=== PATIENT | male | born 1955 | race Caucasian/White ===

== ENCOUNTER 2024-03-06 04:30 | Emergency (ER) | payer OTHER, SELFPAY ==
[2024-03-06] VITALS (7 sets, daily range): BP systolic 119–137; BP diastolic 74–90; BMI 25.7
--- NOTE | 2024-03-06 06:13 | ED.GENMED ---
Addendum entered and electronically signed by Dao Menezes DO 03/06/24 09:55:
Patient and significant other know about the enlarged spleen they see Dr. Hernandez from oncology they will follow-up with her as an outpatient
Original Note:
History of Present Illness
General
Chief Complaint: Male Genito-Urinary Symptoms
Source: patient and spouse
Exam Limitations: none
Time Seen by Provider: 03/06/24 06:02
Nursing documentation reviewed up to this point in time: agreed with
History of Present Illness
History of Present Illness:
68 male presents with fatigue fevers, trouble urinating diagnosed with Lyme disease a week ago started on doxycycline vomited some of the doses, has had history of large prostate, has had fatigue trouble ambulating General Malaise, anxiety, no
cough, using Tylenol Motrin, has also been constipated vomited up his doxycycline a few days ago
Past History
Past History
ED Past Medical History: Hypercholesterolemia, Other (BPH) and Other (Lyme disease)
ED Past Surgical History: None
Social History
Tobacco: Non-smoker
Alcohol: None
Drug: None
Personal: Partner
Living: with family
Review of Systems
Review of Systems
All Other Systems: Not applicable
Constitutional: Reports fever, fatigue and chills
EENT: Reports no symptoms
Respiratory: Reports no symptoms
Cardiac: Reports no symptoms
ABD/GI: Reports nausea, vomiting and constipated; Denies diarrhea
: Reports dysuria and difficulty voiding; Denies flank pain or discharge
Neurological: Reports weakness
Phy Exam
Physical Exam
Physical Exam:
Physical Exam
General: 68 male looks uncomfortable
Neck: No jaundice
Heart: s1/s2 regular rate and rhythm, no murmur. equal radial pulses.
Lungs: no acute respiratory distress. clear bilaterally
Abdomen: Suprapubic tenderness
Neuro: alert and oriented. no focal neurological deficits
Skin: no rash
Psychiatric: well kept. interactive and cooperative
Extremities: no edema.
Course
Orders/Labs/Results
Orders:
Orders
03/06/24 06:11
Bladder Scan- Treatment ONCE
03/06/24 06:22
CMP [Comprehensive Metabolic Panel] Urgent
03/06/24 06:23
COVID-19 Antigen Urgent
Source: Nasal Swab
Complete Blood Count/With Diff Urgent
Manual Differential Urgent
Influenza A+B Rapid Molecular Urgent
RAUL Source: Nasal Swab
Specimen Description:
03/06/24 06:48
Abdomen Xray - 1 View [CR Abdomen - 1 View] Urgent
Comment:
Reason For Exam: fos
03/06/24 07:21
0.9% Sodium Chloride 1000 ml [Nss] 1,000 ml IV BOLUS
03/06/24 07:56
Urinalysis Reflex To Culture Urgent
Date Specimen was Collected: 03/06/24
Time Specimen was Collected: 05:10
Urine Microscopic Reflex Cult Urgent
03/06/24 07:59
CefTRIAXone [Rocephin] 1,000 mg IV NOW STA
03/06/24 08:11
Sterile Water [Sterile Water For Injection] 10 ml .ROUTE .STK-MED ONE
Abnormal Lab Results
03/06/24 03/06/24 03/06/24
06:22 06:23 07:56
RBC 7.07 H 10^6/uL
(4.70-6.10)
Hgb 12.8 L g/dL
(13.0-18.0)
MCV 56.6 L fL
(80.0-94.0)
MCH 18.1 L pg
(27.0-31.0)
MCHC 32.0 L g/dL
(33.0-37.0)
RDW 20.9 H %
(11.5-14.5)
Plt Count 78 L 10^3/uL
(130-400)
Band Neutrophils 8 H %
(0-3)
Lymphocytes (Manual) 14 L %
(20-51)
Monocytes (Manual) 31 H %
(2-9)
Sodium 130 L mmol/L
(135-145)
Chloride 95 L mmol/L
(98-107)
BUN 24 H mg/dl
(9-20)
Glucose 132 H mg/dl
(70-99)
Calcium 7.8 L mg/dl
(8.4-10.2)
Alkaline Phosphatase 127 H U/L
(38-126)
Total Protein 5.2 L g/dl
(6.3-8.2)
Albumin 3.2 L g/dl
(3.5-5.0)
Urine Bilirubin 1+ A
(Negative)
Leukocyte Esterase Rfl Trace A
(Negative)
03/06/24 06:23
03/06/24 06:22
Vital Signs
Initial and Last Documented VS:
Initial Vital Signs
Temp Pulse BP Pulse Ox
99.8 F 75 126/74 97
03/06/24 04:35 03/06/24 04:35 03/06/24 04:35 03/06/24 04:35
Last Documented Vital Signs
Temp Pulse Resp BP Pulse Ox
99.8 F 64 22 136/87 98
03/06/24 04:35 03/06/24 09:30 03/06/24 09:30 03/06/24 09:00 03/06/24 07:15
MDM/Problems Addressed
Differential Diagnosis Includes:
BPH prostatitis UTI retention viral syndrome
MDM/Problems Addressed:
Trouble urinating
*Critical Care Note
Total Time (30-74mins, 75-104mins- exclusive of procedures): Not Applicable
Update Note
Update Note:
Update bladder scan less than 100 cc will have him continue to hydrate orally will check KUB to see if he is impacted or constipated significantly,
Labs noted, will start IV hydration
Urine noted,
Will give a dose of ceftriaxone as it does sound like he has Lyme, that may explain all symptoms with dehydration, did have a tick pulled off with him couple weeks ago at the [facility] [place]
Update urinalysis noted, no convincing evidence of UTI, suspect he is dehydrated, given some information from up-to-date on Lyme, will continue doxycycline also given a copy of his ultrasound discussed with his PCP
ED Attending Note
-
Portions of this chart may have been created with voice recognition software.� Occasional wrong word or��sound alike� substitutions may have occurred due to the inherent limitations of voice recognition software.
Discharge Plan
Departure
Patient Disposition: Home (Routine Discharge)
Date of Disposition: 03/06/24
Time of Disposition: 09:37
Patient with high blood pressure during this ER visit?: No
Condition: Good
Discharge Problem:
Dehydration
Prescriptions:
No Action
No Meds
oxycodone-acetaminophen 5 MG/325 MG tablet
1 tab PO Q4HPRN PRN (Reason: pain) Qty: 5 0RF
cephalexin 500 MG capsule
500 mg PO QID Qty: 28 0RF
Referrals:
Jacqueline Alcaraz NP [Family Provider] - Next open appointment
Activity Restrictions/Additional Instructions:
Drink 32 ounces of water a day at least
Continue doxycycline as prescribed
Discussed your x-ray report with your primary care provider and the need for an ultrasound
Interventions
Interventions:
*Risk Screen - Suicide Last Done: 03/06/24 06:08
*General Assessment Last Done: 03/06/24 06:08
*Neglect/Abuse Screening Last Done: 03/06/24 06:08
*ED COVID-19 Vaccine History Last Done: 03/06/24 06:08
ED-Male Genitourinary Assessment Last Done: 03/06/24 06:07
Discharge Date and Time
Print Language: ARMENIAN
[2024-03-06 06:45] LABS: Hemoglobin 12.8 g/dL (13.0-18.0); Mean Corpuscular Hgb 18.1 pg (27.0-31.0); Mean Corpuscular Volume 56.6 fL (80.0-94.0); Platelet Count 78 10^3/uL (130-400); Red Blood Cell Count 7.07 10^6/uL (4.70-6.10); Red Cell Dist. Width 20.9 % (11.5-14.5); White Blood Cell Count 10.1 10^3/uL (4.8-10.8)
[2024-03-06 07:15] LABS: ALT (SGPT) 24 U/L (0-50); AST (SGOT) 28 U/L (17-59); Albumin 3.2 g/dl (3.5-5.0); Alkaline Phosphatase 127 U/L (38-126); Blood Urea Nitrogen 24 mg/dl (9-20); Calcium 7.8 mg/dl (8.4-10.2); Carbon Dioxide 26 mmol/L (22-30); Chloride 95 mmol/L (98-107); Estimated Creatinine Clearance 54 ml/min; Glucose 132 mg/dl (70-99); Potassium 4.8 mmol/L (3.5-5.1); Sodium 130 mmol/L (135-145); Total Bilirubin 1.3 mg/dl (0.2-1.3); Total Protein 5.2 g/dl (6.3-8.2); eGFR 59.47
[2024-03-06 07:43] LABS: COVID-19 Antigen Negative (Negative)
[2024-03-06] MEDS: NSS 1000 IV (07:54)
[2024-03-06] MEDS: ROCEPHIN 1000 MG IV (08:14)
[2024-03-06 08:24] LABS: Urine Albumin Trace (Neg - Trace); Urine Bilirubin 1+ (Negative); Urine Character Slightly Cloudy (Clear); Urine Color Yellow; Urine Glucose Negative (Negative); Urine Ketone Negative (Negative); Urine Leukocyte Trace (Negative); Urine Nitrite Negative (Negative); Urine Occult Blood Negative (Negative); Urine Specific Gravity 1.015 (<1.030); Urine Urobilinogen Negative (Neg - 1+)
[2024-03-06 08:39] LABS: Urine Granular Cast 0-2 /LPF (0); Urine Red Blood Cell 0-2 /HPF (0-2); Urine Squamous Cell 0-2 /LPF (Few)
[2024-03-06 08:40] LABS: Urine Amorphous Seen
[2024-03-06 09:04] LABS: Absolute Neutrophils -Man Diff 5.3 10^3/uL (1.4-6.5); Band Neutrophils 8 % (0-3); Eosinophils 1 % (0-6); Lymphocytes 14 % (20-51); Monocytes 31 % (2-9); Segmented Neutrophils 45 % (42-75)
[2024-03-06 09:05] LABS: Metamyelocytes 1 % (-); Platelets Checked Yes
[2024-03-06 09:06] LABS: Anisocytosis 1+; Hypochromasia Slight; Normal RBC Morphology No; Nucleated Red Blood Cells 5 (-); Ovalocytes 1+; Target Cells Slight; Total Cells Counted 100
--- NOTE | 2024-03-06 09:57 | EDRN ---
Reviewed discharge instructions with patient. Verbalized understanding. Ambulated with steady gait to the lobby.
== END 2024-03-06 09:55 | disposition home or self-care (01) ==
LOC: EMR 04:30
PROVIDERS: Emergency Medicine; EMERGENCY PHYSICIAN Emergency Medicine; FAMILY PHYSICIAN Internal Medicine
DX: E86.0 Dehydration (principal); R53.83 Other fatigue; R50.9 Fever, unspecified; R11.2 Nausea with vomiting, unspecified; R30.0 Dysuria; R51.9 Headache, unspecified; R53.1 Weakness; A69.20 Lyme disease, unspecified; Z11.52 Encounter for screening for COVID-19; K59.00 Constipation, unspecified; D45 Polycythemia vera; R16.1 Splenomegaly, not elsewhere classified; F41.9 Anxiety disorder, unspecified; E78.00 Pure hypercholesterolemia, unspecified; N40.1 Benign prostatic hyperplasia with lower urinary tract symptoms; R33.8 Other retention of urine; E78.5 Hyperlipidemia, unspecified; Z88.8 Allergy status to other drugs, medicaments and biological substances
CPT/HCPCS: 99284; 96374; 96361; 51798; 74018; 80053; 81003; 81015; 85025; 87502; 87811

== ENCOUNTER 2024-03-07 22:32 | Inpatient (IN) | payer OTHER, SELFPAY ==
[2024-03-07 18:29] VITALS: BP 143/91
[2024-03-07 18:50] LABS: Hematocrit 43.6 % (39.0-52.0); Hemoglobin 13.9 g/dL (13.0-18.0); Mean Corp Hgb Conc. 31.9 g/dL (33.0-37.0); Mean Corpuscular Hgb 18.2 pg (27.0-31.0); Platelet Count 71 10^3/uL (130-400); Red Blood Cell Count 7.65 10^6/uL (4.70-6.10); Red Cell Dist. Width 21.9 % (11.5-14.5); White Blood Cell Count 18.5 10^3/uL (4.8-10.8)
[2024-03-07 19:07] LABS: ALT (SGPT) 29 U/L (0-50); AST (SGOT) 34 U/L (17-59); Albumin 3.5 g/dl (3.5-5.0); Alkaline Phosphatase 138 U/L (38-126); Blood Urea Nitrogen 27 mg/dl (9-20); Calcium 7.9 mg/dl (8.4-10.2); Carbon Dioxide 25 mmol/L (22-30); Chloride 91 mmol/L (98-107); Glucose 130 mg/dl (70-99); Lipase 199 U/L (23-300); Potassium 5.5 mmol/L (3.5-5.1); Sodium 125 mmol/L (135-145); Total Bilirubin 1.4 mg/dl (0.2-1.3); Total Protein 5.6 g/dl (6.3-8.2); eGFR 54.41
[2024-03-07 19:19] LABS: Atypical Lymphocytes 3 %; Band Neutrophils 1 % (0-3); Lymphocytes 20 % (20-51); Monocytes 39 % (2-9); Segmented Neutrophils 37 % (42-75)
[2024-03-07 19:20] LABS: Normal RBC Morphology No; Nucleated Red Blood Cells 6 (-); Platelets Checked Yes; Total Cells Counted 100
--- NOTE | 2024-03-07 19:43 | ED.GENMED ---
History of Present Illness
General
Chief Complaint: Abdominal Symptoms
Source: patient, records and family
Exam Limitations: none
Time Seen by Provider: 03/07/24 19:08
History of Present Illness
History of Present Illness:
68yoM with a history of hyperlipidemia and polycythemia vera presenting with his family for evaluation of multiple complaints. Patient has been feeling ill for about 3 weeks with night sweats, body aches, and joint pains. His PCP reportedly
checked a Lyme panel about a week ago which came back positive. He was started on a 21 day course of doxycycline. Over the past 4 to 5 days, patient has been feeling a fullness in his upper abdomen with bloating. He is also having acid reflux and
decreased appetite. He is vomiting intermittently. He feels very dehydrated and is urinating less than normal. He is also having fevers up to 103 at home. He was seen in the ED yesterday for the symptoms. He was diagnosed with dehydration and
received a liter of normal saline and a dose of Rocephin during his ED stay. He also had a KUB which showed findings suggesting severe splenomegaly. Patient took his evening dose of doxycycline around 6 PM this evening. About 30 minutes later, he
developed a stinging pain in his left upper quadrant which radiated to the left shoulder. Pain was worse with breathing which prompted him to come to the ED. Patient reports feeling very anxious regarding his symptoms.
Past History
Past History
ED Past Medical History: Hypercholesterolemia, Other (BPH) and Other (Lyme disease)
ED Past Surgical History: None
Social History
Tobacco: Non-smoker
Alcohol: None
Drug: None
Personal: Partner
Living: with family
Phy Exam
Physical Exam
Physical Exam:
Appears fatigued, non-toxic
General Physical Exam
General Skin: warm and dry
General Habitus: normal
General Mental: alert and anxious
ENT Exam
ENT Exam: normocephalic
Cardiovascular Exam
Cardiovascular Exam: regular rate/rhythm and no murmur
Pulmonary Exam
Pulmonary Exam: lungs clear, no respiratory distress, no rales, no crackles, no rhonchi and no wheezing
Gastrointestinal Exam
Gastrointestinal Exam: soft, non distended and other (+Tenderness in epigastric and LUQ region. No rebound or guarding. )
Neurological Exam
Neurological Exam: alert
Rogelio Coma Scale
Eye Opening: Spontaneous
Verbal Response: Oriented
Motor Response: Obeys Commands
GCS Total Score: 15
Skin Exam
Skin Exam: normal color and warm/dry
Psychiatric Exam
Psychiatric Exam: anxious
Course
Orders/Labs/Results
Orders:
Orders
03/07/24 18:22
EKG [Electrocardiogram (*1)] Urgent
Reason for Study: Chest Pain
EKG- Treatment ONCE
03/07/24 18:38
Complete Blood Count/With Diff Urgent
Comprehensive Metabolic Panel Urgent
Lipase Urgent
Magnesium Urgent
Comment: ADD ON
Manual Differential Urgent
03/07/24 19:40
Add On- LAB Urgent
Tests Added?: magnesium
Cardiac Monitoring- Treatment ONCE
03/07/24 19:41
CT Pe/abd/pel W Urgent
Comment:
Reason For Exam: Pleuritic pain, upper abd pain
0.9% Sodium Chloride 1000 ml [Nss] 1,000 ml IV BOLUS
03/07/24 19:51
Lactate Level [Lactic Acid] Urgent
Troponin I Urgent
Blood Culture Q30M
RAUL Source: Blood/Venous
Specimen Description:
03/07/24 20:15
Blood Culture Q30M
RAUL Source: Blood/Venous
Specimen Description:
03/07/24 21:04
CefTRIAXone [Rocephin] 2,000 mg IV NOW STA
03/07/24 21:11
Sterile Water [Sterile Water For Injection] 20 ml .ROUTE .STK-MED
03/07/24 22:00
Flush (0.9% Sodium Chloride) [Flush (Nss)] See Dose Instructions IV PER PROTOCOL
03/07/24 22:12
Lorazepam [Ativan] 1 mg PO NOW STA
03/07/24 22:16
Admit/Transfer Patient As Directed
Co-Sign Provider:
Level of Care: Inpatient admission
Assign to:: Medical/Surgical
Physician / Group: [email or web address]
Diagnosis: acute lyme infection, symtomatic splenic infarct, poot PO tolernc to PO De
Reason for Hospitalization: acute Lyme infection, symptomatic splenic infarct, poor PO tolerance to doxy, PO
Dehydration
Expected length of stay greater than two midnights?: Yes
ELOS- Estimated Length of Stay in days: 3
I certify the patient meets the requirements for IP care: Yes
03/07/24 22:18
Code Status As Directed
Resuscitation Status: Full Code
03/07/24 23:04
0.9% Sodium Chloride 1000 ml [Nss] 1,000 ml IV 100 mls/hr
Acetaminophen [Tylenol] 650 mg PO Q4HPRN PRN
Bisacodyl [Dulcolax] 10 mg RECTAL [id number] PRN
Docusate W/Senna [Senokot-S] 1 tablet PO BIDPRN PRN
HYDROmorphone [Dilaudid] 0.25 mg IV Q3HPRN PRN
Ondansetron Injectable [Zofran] 4 mg IV Q6HPRN PRN
Polyethylene Glycol Powder [Miralax] 17 grams PO DAILYPRN PRN
03/07/24 23:04
Consult Notification Routine
Specialty to Notify: Hematology
Consult Notification Routine
Specialty to Notify: Infectious Disease
HEMATOLOGY CONSULT Routine
Consulting Provider: Naveed Hughes
Was physician already notified: No
Reason for consult: acute splenic infarct, polycythenia
INFECTIOUS DISEASE CONSULT Routine
Consulting Provider: Laina Paez
Was physician already notified: No
Reason for consult: acute lyme infection
Activity As Directed
Activity Level: With Assistance
Intake/ Output As Directed
Frequency: Per unit guidelines
Vital Signs As Directed
Frequency: Per unit guidelines
Weight As Directed
Frequency: Daily
DX Deep Vein Thrombosis Video Routine
03/08/24 Breakfast
Full Liquids
Basic Metabolic Panel IN AM
Complete Blood Count/No Diff IN AM
03/08/24 08:00
Aspirin Low Dose EC [Aspir Low (Enteric Coated)] 81 mg PO DAILY
Heparin 5,000 units SC Q12
03/08/24 22:00
CefTRIAXone [Rocephin] 1,000 mg IV Q24H
Abnormal Lab Results
03/07/24
18:38
WBC 18.5 H 10^3/uL
(4.8-10.8)
RBC 7.65 H 10^6/uL
(4.70-6.10)
MCV 57.0 L fL
(80.0-94.0)
MCH 18.2 L pg
(27.0-31.0)
MCHC 31.9 L g/dL
(33.0-37.0)
RDW 21.9 H %
(11.5-14.5)
Plt Count 71 L 10^3/uL
(130-400)
Abs Neuts (Manual) 7.0 H 10^3/uL
(1.4-6.5)
Segmented Neutrophils 37 L %
(42-75)
Monocytes (Manual) 39 H %
(2-9)
Sodium 125 L mmol/L
(135-145)
Potassium 5.5 H mmol/L
(3.5-5.1)
Chloride 91 L mmol/L
(98-107)
BUN 27 H mg/dl
(9-20)
Creatinine 1.4 H mg/dL
(0.7-1.3)
Glucose 130 H mg/dl
(70-99)
Calcium 7.9 L mg/dl
(8.4-10.2)
Total Bilirubin 1.4 H mg/dl
(0.2-1.3)
Alkaline Phosphatase 138 H U/L
(38-126)
Total Protein 5.6 L g/dl
(6.3-8.2)
03/07/24 18:38
03/07/24 18:38
Vital Signs
Initial and Last Documented VS:
Initial Vital Signs
Temp Pulse Resp BP Pulse Ox
98.3 F 91 20 143/91 97
03/07/24 18:29 03/07/24 18:29 03/07/24 18:29 03/07/24 18:29 03/07/24 18:29
Last Documented Vital Signs
Temp Pulse Resp BP Pulse Ox
98.3 F 66 17 111/77 96
03/07/24 18:29 03/08/24 02:00 03/08/24 02:00 03/08/24 02:00 03/08/24 02:00
MDM/Problems Addressed
Differential Diagnosis Includes:
68yoM here with multiple complaints including fevers, night sweats, decreased appetite, upper abd pain. Recently tested positive for Lyme and currently on doxycycline. Seen in ED yesterday for dehydration. New LUQ pain radiating to the L shoulder
this evening prompting return visit. Patient is afebrile and hemodynamically stable. He is anxious on exam and appears fatigued but nontoxic. No signs of peritonitis on abdominal exam. Differential diagnosis includes but is not limited to:
Splenomegaly, pill esophagitis, pancreatitis, PUD, dehydration.
Initial ED plan: Abdominal labs obtained in triage. Sodium is 125 which appears acute. Potassium mildly elevated at 5.5. Creatinine 1.4. Will check lactate, blood cultures, troponin/EKG, and CTA CAP. IV fluid bolus.
*EKG
Interpreted by ED Provider?: Yes
EKG Intrepretation Date: 03/07/24
Heart Rate: 78
Rate: normal
Rhythm: sinus
[place]: normal axis
Interval: normal interval
QRS Pattern: normal QRS
Ischemia: no ischemia
*Critical Care Note
Total Time (30-74mins, 75-104mins- exclusive of procedures): Not Applicable
Update Note
Update Note:
No ischemic changes noted on EKG and troponin within normal limits. Lactate 1.7. CT shows severe splenomegaly with heterogeneous enhancement of the spleen which suggest the presence of splenic infarcts. Patient having difficulty tolerating
doxycycline. Dose of IV Rocephin ordered and he was admitted for further management.
ED Attending Note
-
Portions of this chart may have been created with voice recognition software.� Occasional wrong word or��sound alike� substitutions may have occurred due to the inherent limitations of voice recognition software.
Discharge Plan
Departure
Patient Disposition: Admit
Date of Disposition: 03/07/24
Time of Disposition: 21:05
Presentation/result/management discussed w/ accepting MD/DO: Hospitalist
Discharge Problem:
Acute hyponatremia, Fever, Generalized weakness, Splenomegaly
Interventions
Interventions:
*Risk Screen - Suicide Last Done: 03/07/24 18:29
*General Assessment Last Done: 03/07/24 18:29
*Neglect/Abuse Screening Last Done: 03/07/24 18:29
ED- Fall Risk Assessment Last Done: 03/07/24 20:13
*ED COVID-19 Vaccine History Last Done: 03/07/24 19:47
IX-Tthiwz-Xobxbhthqo Assessment Last Done: 03/07/24 20:13
[2024-03-07 19:47] VITALS: BMI 26.5
[2024-03-07] MEDS: NSS 1000 IV ×2 (19:55→23:49)
[2024-03-07 20:00] VITALS: BP 135/88
[2024-03-07 20:19] LABS: Magnesium 1.9 mg/dl (1.6-2.3)
[2024-03-07 20:22] LABS: Lactic Acid 1.7 mmol/L (0.7-2.0)
[2024-03-07 20:34] LABS: Troponin I < 0.012 ng/ml
[2024-03-07 21:00] VITALS: BP 130/83
[2024-03-07] MEDS: ROCEPHIN 2000 MG IV (21:12)
--- NOTE | 2024-03-07 21:48 | HPS.HSE ---
Family Physician
-
Family Physician: Jacqueline Alcaraz
Chief Complaint
-
multiple complaints. see HPI
History of Present Illness
68M HX polycythemia vera, HLD see at ER with multiple complaints.
- has been feeling ill for about 3 weeks with night sweats, body aches, and joint pains.
- PCP reportedly checked a Lyme panel about a week ago which came back positive.
- started on a 21 day course of doxycycline.
- Over the past 4 to 5 days, report fullness in his upper abdomen with bloating.
- acid reflux and decreased appetite
- vomiting intermittently.
- dehydrated and is urinating less than normal.
- fevers up to 103 at home.
- he was seen in the ED yesterday for the symptoms. He was diagnosed with dehydration and received a liter of normal saline and a dose of Rocephin during his ED stay. He also had a KUB which showed findings suggesting severe splenomegaly.
- Patient took his evening dose of doxycycline around 6 PM this evening. About 30 minutes later, he developed a stinging pain in his left upper quadrant which radiated to the left shoulder. Pain was worse with breathing which prompted him to come
to the ED.
Medical History
Past Medical History
Past Medical History: Reports Hypercholesterolemia and Other (BPH , Polycythemia )
Past Surgical History: Reports None
Social History
Tobacco: Non-smoker
Alcohol: None
Family History
Family History: Not pertinent
Allergies / Home Medications
Allergies reflects when Allergies were last updated in [employer].
Home Medications with original date entered in [employer]
Allergy/Medication List:
Allergies
Allergy/AdvReac Type Severity Reaction Status Date / Time
Ywvzewi-YFW-WiA Reductase Allergy Unknown Verified 03/07/24 18:33
Inhibitor
Home Medications
aspirin 81 mg tablet,delayed release 81 mg PO DAILY 03/07/24
rosuvastatin 5 mg tablet 5 mg PO DAILY 03/07/24
Review of Systems
-
Constitutional: Reports Fever
EENT: Reports See HPI
Respiratory: Reports See HPI
Cardiac: Reports See HPI
Musculoskeletal: Reports See HPI
Skin: Reports See HPI
Neurological: Reports See HPI and Dizzy
Endocrine: Reports See HPI
Hematologic/Lymphatic: Reports See HPI
Physical Exam
Vital Signs
Vital Signs
Temp Pulse Resp BP Pulse Ox
98.3 F 70 21 130/83 95
03/07/24 18:29 03/07/24 21:15 03/07/24 21:15 03/07/24 21:00 03/07/24 21:15
Physical Exam
General: Well Developed, Well Nourished and No Apparent Distress
HEENT: NormoCephalic, Moist mucous membranes and Atraumatic
Respiratory: Clear
Cardiac: S1/S2 and Regular Rhythm; No Murmur or Rub
GI: Soft, Non Tender, Non Distended and Normal Bowel Sounds; No Organomegaly
Rectal: Deferred by Provider
Musculoskeletal: No Clubbing, No Cyanosis and No Edema
Skin: No Rash
Neuro: Nonfocal/grossly intact
Laboratory Results
-
03/07/24 18:38
03/07/24 18:38
Laboratory Results
Lactic Acid 1.7 mmol/L (0.7-2.0) 03/07/24 19:51
Total Bilirubin 1.4 mg/dl (0.2-1.3) H 03/07/24 18:38
AST 34 U/L (17-59) 03/07/24 18:38
ALT 29 U/L (0-50) 03/07/24 18:38
Alkaline Phosphatase 138 U/L (38-126) H 03/07/24 18:38
Troponin I < 0.012 ng/ml 03/07/24 19:51
Lipase 199 U/L (23-300) 03/07/24 18:38
Data Reviewed
-
CT Scan: Report Reviewed by me
Lab Data: Discussed with Physician
Impression/Plan
-
Data
Laboratory Tests
03/06/24 03/06/24 03/07/24
06:22 06:23 18:38
WBC 10.1 18.5 H
Hgb 12.8 L 13.9
Plt Count 78 L 71 L
Segmented Neutrophils 37 L
Band Neutrophils 1 D
Sodium 130 L 125 L
Potassium 4.8 5.5 H
Chloride 91 L
BUN 27 H
Creatinine 1.3 1.4 H
eGFR 54.41
Lactic Acid 1.7
Total Bilirubin 1.4 H
Troponin I < 0.012
CT Pe/abd/pel W IV contrast
1).There is severe splenomegaly with splenic length of 23 cm in this patient with known polycythemia vera
There is heterogeneous contrast enhancement of the spleen which, given the patient's clinical history suggest the presence of intrasplenic infarcts.
2). Small left pleural effusion
3). Hepatomegaly
4). Multilevel lumbar degenerative disc disease
EKG
NORMAL SINUS RHYTHM
SEPTAL INFARCT , AGE UNDETERMINED
ABNORMAL ECG
NO PREVIOUS ECGS AVAILABLE
No prior hospitalist admission :
ASSESSMENT & PLAN
Highly suspect acute lyme infection; witnessed tick bite in December
POS Lyme serology 1 week ago
Fever, myalgia
Poor PO tolerance to PO Doxycycline vs. symptomatic acute splenic infarct vs acute lyme dz
- Hold of Doxy for now
- s/p first dose of CFTX and cont
- cont ASA
- ID consult
Abdominal fullness, intermittent vomiting with eft upper quadrant which radiated to the left shoulder are due to suspect symptomatic acute intrasplenic infarcts in setting of hemoconcentration due to dehydration from GI loss
Underlying PCR with severe splenomegaly
- Supportive care care with PRN analgesia, IVF, ani emetics
- Generous IV Hydration
- Heme consult
Hyponatremia suspect hypovolemic due to vomit and poor PO intqake
Hyperkalemia
Pre renal ALEXIS due to dehydration from GI loss
- s/p 1 L IV NS @ ER
- will repeat IV NS @ 100
- Trend Na
HLD
- Hold of Rosuvastatin
DVT Px: on ASA
Full code
IP MS
[2024-03-07 22:00] VITALS: BP 139/80
--- NOTE | 2024-03-07 22:15 | EDRN ---
Patient's in hallway asking to talk, went into room asking about the Ativan and if the provider had ordered like they stated they would, informed her that they did however since was placed on the inpatient side, all medications need to be
verified by the pharmacist so we can give them.
[2024-03-07 23:01] VITALS: BP 126/86
--- NOTE | 2024-03-07 23:30 | EDRN ---
Patients had asked another nurse about patients Ativan, informed them I had it and would be in to medicate him.
[2024-03-07] MEDS: ATIVAN 1 MG PO (23:48)
--- NOTE | 2024-03-07 23:50 | EDRN ---
While in giving patient's Ativan, patient reported being slightly uncomfortable, informed him we could give him something for pain per the order
[2024-03-07] MEDS: DILAUDID 0.25 MG IV (23:58)
[2024-03-08] VITALS (15 sets, daily range): BP systolic 103–139; BP diastolic 70–91; BMI 27.0
--- NOTE | 2024-03-08 03:46 | EDRN ---
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
--- NOTE | 2024-03-08 05:34 | EDRN ---
Patient ambulated to the restroom and back in bd, was able to ambulate without difficulty, resting comfortable at this time.
[2024-03-08 06:55] LABS: Blood Urea Nitrogen 29 mg/dl (9-20); Calcium 7.1 mg/dl (8.4-10.2); Carbon Dioxide 23 mmol/L (22-30); Chloride 95 mmol/L (98-107); Estimated Creatinine Clearance 45 ml/min; Glucose 106 mg/dl (70-99); Potassium 5.5 mmol/L (3.5-5.1); Sodium 127 mmol/L (135-145); eGFR 50.08
--- NOTE | 2024-03-08 07:19 | EDRN ---
Report to Melisa sahni
[2024-03-08 07:29] LABS: Hematocrit 41.8 % (39.0-52.0); Hemoglobin 13.5 g/dL (13.0-18.0); Mean Corp Hgb Conc. 32.3 g/dL (33.0-37.0); Mean Corpuscular Hgb 18.2 pg (27.0-31.0); Mean Corpuscular Volume 56.4 fL (80.0-94.0); Platelet Count 62 10^3/uL (130-400); Red Blood Cell Count 7.41 10^6/uL (4.70-6.10); Red Cell Dist. Width 21.2 % (11.5-14.5); White Blood Cell Count 17.1 10^3/uL (4.8-10.8)
--- NOTE | 2024-03-08 07:30 | EDRN ---
Mineral Resources Inspector and Infectious disease Physicians on-call TT'd about ordered consults this am.
--- NOTE | 2024-03-08 07:55 | EDRN ---
Pt OOB to BR at this time.
[2024-03-08] MEDS: ASPIR LOW (ENTERIC COATED) 81 MG PO (08:06)
[2024-03-08] MEDS: HEPARIN 5000 UNITS SC ×2 (08:06→20:04)
[2024-03-08] MEDS: DILAUDID 0.25 MG IV ×3 (08:07→21:49)
--- NOTE | 2024-03-08 08:34 | EDRN ---
Called dietary for non par tray.
[2024-03-08 08:35] LABS: Lipase 923 U/L (23-300)
--- NOTE | 2024-03-08 08:43 | W.PN.HOSP.TC ---
Addendum entered and electronically signed by Harsh Mazariegos MD 03/09/24 15:06:
#mariel
#Hyponatremia
#Mild hyperkalemia
IVF
urine studies
Nephrology consult
serial BMP
Original Note:
Today's Communication/Plan
-
See PN
Assessment / Plan
Assessment / Plan
68yo M with polycythemia versa and HLD admitted with weakness, nighttime sweats and fever started 6 days before admission. His automation consultant found a tick on his body in December, but patient did not follow up with his PCP to the test until the last
week. outpatient Lyme screen came back positive, patient staretd on Doxy., but developed LUQ abd pain and vomiting, unable to hold food down. Admitted with acute Lyme disease
A/P:
#Acute lyme disease
Ceftriaxone 2g q24h
Check babesia, blood smear for parazites
ID consult
No high grade AVB on EKG
#Polycythemia vera
#Thrombocytopenia
#microcytosis
managed with ASA and blood draws by [facility]
Hematology consult
Follow plt
#Elevated bilirubin
follow LFT
check direct bili, LDH
#hepatosplenomegally with splenic infarction
most likely 2/2 PV
pain mgmt
DVT pph on heparin
Full code
I have spent at least 59min reviewing chart, test results, communication with consultants and direct patient care
Anticipated Discharge: > 48 hours
Subjective/Interval History
-
Date of Service: March 08, 2024
Objective Data
-
Labs:
Laboratory Results
03/08/24 03/08/24
05:28 08:25
WBC 17.1 H
Hgb 13.5
Hct 41.8
Plt Count 62 L
Sodium 127 L
Potassium 5.5 H
Chloride 95 L
Carbon Dioxide 23
BUN 29 H
Creatinine 1.5 H
Glucose 106 H
Calcium 7.1 L
Total Bilirubin Cancelled Pending
AST Cancelled Pending
ALT Cancelled Pending
Alkaline Phosphatase Cancelled Pending
Vital Signs:
Vital Signs
Temp Pulse Resp BP Pulse Ox
99.1 F 67 17 122/83 96
03/08/24 03:48 03/08/24 07:45 03/08/24 07:45 03/08/24 07:00 03/08/24 07:45
Review of Systems
-
History Source: Patient
All other systems: Reviewed and negative
Abdomen/GI: Reports Abdominal Pain (LUQ)
Physical Exam
-
General: No Apparent Distress
Respiratory: Clear to Auscultation
Cardiac: Regular Rhythm
GI: Soft, Tender (LUQ) and Distended
Musculoskeletal: No Clubbing, No Cyanosis and No Edema
Neuro: Awake, Alert, Oriented, AO x 3 and No Motor Deficits
Psych: Calm
[2024-03-08 08:44] LABS: Cortisol, Random 20.9 ug/dl
--- NOTE | 2024-03-08 09:22 | CON.ONC ---
Addendum entered and electronically signed by Bre Kuo MD 03/08/24 14:17:
Pt with pvera managed with phlebotomy alone, declined Hydrea.
He is not sure whether his LUQ discomfort and fullness were increasing even prior to acute presentation. Spleen was 14 cm in 2022.
Suspect acute on chronic splenomegaly given recent onset LUQ pain.
Could consider Hydrea if symptoms fail to improve once acute infection treated.
Working diagnosis is Lyme but additional infectious serologies pending.
High monocytes noted, will request Pathologist review of smear.
Suspect thrombocytopenia due to suspect acute increase in splenomegaly. His baseline count was in the high 400's.
Original Note:
Impression
Impression
Jak2 PV/MPN, last phleb 02/03 for Hct >45%
splenomegaly 23cm, previously measured ~14cm 2022
hepatomegaly
Lyme disease
fever
leukocytosis/neutrophilia
thrombocytopenia
Plan
Plan
follow up ID consult, on abx. Babesia and blood smear for parasites pending. Would also check ehrlichiosis
acute thrombocytopenia may be secondary to splenomegaly +/- lyme +/- doxycycline
cautions antiplatelet, anticoagulation, and NSAIDs for platelet count <50,000
splenomegaly and hepatomegaly can also be seen in Lyme disease
check DIC panel
no role for therapeutic phlebotomy with Hct <45%
OP follow up with Dr. Hernandez 03/17 9am
Patient History
History of Present Illness
68yo M known to Dr. Hernandez for management of Jak2 positive polycythemia vera and recent diagnosis of Lyme disease who presented to the ER with stinging pain to his LUQ that radiated to his left shoulder and associated with SOB. He reports night
sweats, body, aches, fevers, and arthralgias over the past 3 weeks with Tmax 103F at home. More recently he reports upper abdominal fullness and bloating over the past week. His GI symptoms are associated with indigestion, intermittent vomiting,
and decreased appetite. He reports that his Lyme panel checked by his PCP last week was positive and has started a course of doxycycline. His initial evaluation was notable for WBC 18.5, Hgb 13.9, Hct 41.8, MCV 57, platelet count 62,000, sodium
130, bun 24, creatinine 1.3, Tbili 1.3, AST 28, ALT 24, alk phos 127. CTA chest, abdomen, and pelvis showed no pulmonary emboli, however, did show splenomegaly (23cm), possible intrasplenic infarcts, hepatomegaly (20cm), small left pleural
effusion, and multilevel lumbar disc disease. He has been admitted, started on atovaquone, azithromycin, ceftriaxone, hydromorphone, and IVF.
He was initially diagnosed with Jak2 positive PV April 2022. He underwent his last phlebotomy 02/04/2024 for Hct 46% and has required approximately every 3 months if his Hct is >45%. He is appropriately iron deficient from phlebotomies. He takes
ASA 81mg daily ppx. He has no history of venous or arterial thrombosis.
Clinically, he reports improved pain on hydromorphone. He reports constipation. He denies headache, lower extremity swelling, weight loss, or palpitations. He is up-to-date on colonoscopy, last done 2021 and PSA, last checked October 2023. He
reports no significant abnormalities.
Past-Medical/Surgical History
PMH primary (jak2 positive) polycythemia vera, HLD, meniere disease, adenoma polyps
PSH denies
Social never smoker, denies etoh or recreational drugs.
Family father metastatic cancer with unknown primary, mother colon polyps
Patient Medication
�Medication �Instructions �Recorded �Confirmed �Last Taken �Type
aspirin 81 mg tablet,delayed 81 mg PO DAILY Blood Clot 03/07/24 03/07/24 Unknown History
release Prevention/Tx
rosuvastatin 5 mg tablet 5 mg PO DAILY High Cholesterol 03/07/24 03/07/24 Unknown History
Active Medications
Generic Name Dose Route Start Last Admin
Trade Name Freq PRN Reason Stop Dose Admin
Acetaminophen 650 mg 03/07/24 23:04
Acetaminophen 325 Mg Tablet PO 04/04/24 23:03
Q4HPRN PRN
mild pain/JEFFERSON/temp> 100.4F
Aspirin 81 mg 03/08/24 08:00 03/08/24 08:06
Aspirin 81 Mg (Enteric Coated) Tablet PO 04/05/24 07:59 81 mg
DAILY JACOB Administration
Atovaquone 750 mg 03/08/24 10:00
Atovaquone 750 Mg/5 Ml Oral Suspension Cup PO 03/18/24 09:59
Q12 JACOB
Bisacodyl 10 mg 03/07/24 23:04
Bisacodyl 10 Mg Rectal Suppository RECTAL 04/04/24 23:03
[id number] PRN
constipation
Ceftriaxone Sodium 2,000 mg 03/08/24 20:00
Ceftriaxone 2,000 Mg/20 Ml Vial IV
Q24H JACOB
Heparin Sodium 5,000 units 03/08/24 08:00 03/08/24 08:06
Heparin 5,000 Units/Ml 1 Ml Vial SC 04/05/24 07:59 5,000 units
Q12 JACOB Administration
Hydromorphone HCl 0.25 mg 03/07/24 23:04 03/08/24 08:07
Hydromorphone 0.25 Mg/0.5 Ml Syringe IV 03/21/24 23:03 0.25 mg
Q3HPRN PRN Administration
mod/severe pain
Sodium Chloride 1,000 mls @ 100 mls/hr 03/07/24 23:04 03/07/24 23:49
Nss IV 1,000 mls
.Q10H JACOB Administration
Azithromycin 500 mg in 250 mls @ 250 mls/hr 03/08/24 10:00
Zithromax Infusion IV
Q24H JACOB
Ondansetron HCl 4 mg 03/07/24 23:04
Ondansetron 4 Mg/2 Ml Vial IV 04/04/24 23:03
Q6HPRN PRN
nausea and vomiting
Polyethylene Glycol 17 grams 03/07/24 23:04
Polyethylene Glycol Powder 17 Grams Packet PO 04/04/24 23:03
DAILYPRN PRN
constipation
Senna/Docusate Sodium 1 tablet 03/07/24 23:04
Docusate W/Senna (Kira-Colace) Tablet PO 04/04/24 23:03
BIDPRN PRN
constipation
Sodium Chloride 0 flush 03/07/24 22:00
Sodium Chloride 0.9% (Flush) Syringe IV 04/04/24 21:59
PER PROTOCOL JACOB
Sterile Water 20 ml 03/08/24 20:00
Sterile Water For Injection 20 Ml Vial IV 04/05/24 19:59
Q24H JACOB
Review of Systems
-
ROS notable for HPI, otherwise negative
Physical Exam
-
General: Well Developed and No Apparent Distress
HEENT: Moist Mucous Membranes; Negative Jaundice
Cardiology: Normal Sinus Rhythm
Pulmonary: Clear
GI: Soft and Spleenomegaly
Extremities: Pulses Present; Negative Edema
Neurology: Non Focal
Skin: Warm
Psych: Calm
Labs
Lab Results
WBC 17.1 10^3/uL (4.8-10.8) H 03/08/24 05:28
RBC 7.41 10^6/uL (4.70-6.10) H 03/08/24 05:28
Hgb 13.5 g/dL (13.0-18.0) 03/08/24 05:28
Hct 41.8 % (39.0-52.0) 03/08/24 05:28
MCV 56.4 fL (80.0-94.0) L 03/08/24 05:28
MCH 18.2 pg (27.0-31.0) L 03/08/24 05:28
MCHC 32.3 g/dL (33.0-37.0) L 03/08/24 05:28
RDW 21.2 % (11.5-14.5) H 03/08/24 05:28
Plt Count 62 10^3/uL (130-400) L 03/08/24 05:28
MPV Not Reportable 03/08/24 05:28
Creatinine 1.5 mg/dL (0.7-1.3) H 03/08/24 05:28
Vital Signs
Vital Signs
Temp Pulse Resp BP Pulse Ox
99.1 F 64 22 124/83 96
03/08/24 09:01 03/08/24 09:00 03/08/24 09:00 03/08/24 09:00 03/08/24 09:00
[2024-03-08] MEDS: MEPRON SUSPENSION 750 MG PO ×2 (10:02→21:49)
[2024-03-08] MEDS: NSS 1000 IV (10:03)
[2024-03-08] MEDS: ZITHROMAX INFUSION 250 IV (10:24)
[2024-03-08 11:10] LABS: Blood Urea Nitrogen 29 mg/dl (9-20); Carbon Dioxide 21 mmol/L (22-30); Chloride 96 mmol/L (98-107); Estimated Creatinine Clearance 48 ml/min; Glucose 106 mg/dl (70-99); Potassium 5.4 mmol/L (3.5-5.1); Sodium 124 mmol/L (135-145); eGFR 54.41
--- NOTE | 2024-03-08 11:37 | CON.GI ---
Addendum entered and electronically signed by Candie Sanchez Do, MD 03/08/24 16:25:
I personally performed a history and physical exam of the patient and discussed management with the resident. I reviewed the resident's note and agree with the documented findings and plan of care HPI/CC.
Rc is a 68yo M with h/o polycythemia vera and recent Lyme's disease who presents with acute LUQ abd pain with radiations to the shoulder. He does have some reflux and mild constipation. No blood in stools. No prior abd pain and does not follow
with GI regularly. Denies odynophagia, dysphagia, N/V or wt loss. Vitals stable exam with hepatosplenomegaly. Labs reviewed LFTs normal lipase elevated to 900s. CTAP with IV contrast shows normal pancreas, severe splenomegaly with 23cm spleen, L
pleural effusion and DJD
Impression
- LUQ abd pain
Suspect related to acute splenomegaly (23cm in size) and thrombocytopenia with sequestration
- Elevated lipase
Without findings of pancreatis on CTAP with IV contrast and classic epigastric pain makes pancreatitis unlikely
- Lyme's disease
- Microcytosis without anemia
- GERD
- Constipation
- Thrombocytopenia
- Polycythemia vera
- Pleural effusion
- Small ascites
Recommendations
- PPI
- Miralax x1 today
- Adv to low fat diet
- Results of CTAP reviewed. Results d/w pt and partner bedside
- Appreciate hematology, ID and renal recs
At this juncture no new GI recs will sign off please call for questions.
Original Note:
Consultation
-
Date/Time Consultation Requested: 03/08/2024 10:03 AM
Date/Time Consultation Performed: 03/08/2024 12:45 PM
Requesting Provider: Harsh Mazariegos MD
Performing Provider: Candie Austin MD
Reason for Consultation: Pancreatitis
Medical History
Chief Complaint / HPI
Chief Complaint: LUQ abdominal pain
History of Present Illness:
68-year-old male with PMH of polycythemia vera, hyperlipidemia, and recent diagnosis of Lyme's disease who presented to ED on 03/07/2024 with LUQ stinging abdominal pain that radiates to the left shoulder. Patient rates pain 6/10, worsens with
deep breathing and no specific alleviating factors. Patient reports a 6 days history of night sweats, abdominal fullness, intermittent nausea and vomiting, acid reflux and bloating. He also had a 3 weeks history of body aches, joint pain,
intermittent nausea/vomiting, weakness, fever up to T.max of 103 at home. He also reports feeling out of breath with minimal exertion during this time. Patient reports recent travels to the [facility] over the summer, and [place] in mid January
2023 where he got sick and was around the river gard[place]. 3 weeks ago, patient saw his brine purifier for full body check with a tick was pulled out from his body. However, patient did not follow-up with his PCP and receive any treatment. Patient saw
his PCP who ordered Lyme serology which came back positive and he was started on 21 days course of doxycycline. Patient was recently seen in the ED on 03/06/2024 with fever and dysuria. An abdominal x-ray done at that time showed splenomegaly with
approximate 23 cm in length. And he was treated with Rocephin and IV fluid. However, patient developed worsening upper abdominal fullness, and bloating which prompted his return to the ED. While in the ED, his WBC count was 18.5 with neutrophilic
and monocytic predominance, platelets 71, sodium 125, potassium 5.5, creatinine 1.4, BUN 27, T. bili 1.4, AST 24, ALT 29, ALP 138, lipase 199. Today, his WBC has improved to 17.1, and hemoglobin stable at 13.5. However, platelets are dropped to
62, sodium 124, potassium 5.4, creatinine 1.4 and lipase worsened to 923.
Patient currently reports that his abdominal pain has improved to 4/10, he denies chest pain, N/V, headaches, fever, chills. Gastroenterology was consulted due to concerns for acute pancreatitis.
Past Medical History
Past Medical History: Hypercholesterolemia and Other (BPH, polycythemia vera)
Past Surgical History: None
Social History
Tobacco: Non-Smoker
Alcohol: Occasional
Drug: None
Personal:
Living: With Family
Family History
Family History: Reviewed & Not Pertinent
Allergies / Home Medications
Reports allergy to 30 mg pravastatin 10 years ago, but tolerates 5 mg rosuvastatin.
Allergy/AdvReac Type Severity Reaction Status Date / Time
Jxefrdp-[id number]-VfU Reductase Allergy Unknown Verified 03/07/24 18:33
Inhibitor
�Medication �Instructions �Recorded
aspirin 81 mg tablet,delayed 81 mg PO DAILY Blood Clot 03/07/24
release Prevention/Tx
rosuvastatin 5 mg tablet 5 mg PO DAILY High Cholesterol 03/07/24
Review of Systems
-
History Source: Patient
All other systems: A 12 pt ROS was Negative except as stated above in HPI
Vital Signs
Temp Pulse Resp BP Pulse Ox
99.1 F 64 22 124/83 96
03/08/24 09:01 03/08/24 09:00 03/08/24 09:00 03/08/24 09:00 03/08/24 09:00
Physical Exam
Exam
General: No Apparent Distress, Comfortable, Pain (LUQ stinging pain) and Poor Appetite; Negative Fever, Chills or Sweats
HEENT: Anicteric and Other (Dry mucous membranes)
Respiratory: Clear and Non Labored Respirations; Negative Wheezes, Rales or Rhonchi
Cardiac: S1/S2 and Regular Rhythm; Negative Murmur or Rub
GI: Soft, Non Tender, Non Distended and Normal Bowel Sounds
Rectal: Deferred by Provider
Skin: Warm
Neuro: Awake and AO x 3
Psych: Calm
Results
WBC 17.1 10^3/uL (4.8-10.8) H 03/08/24 05:28
Hgb 13.5 g/dL (13.0-18.0) 03/08/24 05:28
Hct 41.8 % (39.0-52.0) 03/08/24 05:28
MCV 56.4 fL (80.0-94.0) L 03/08/24 05:28
Plt Count 62 10^3/uL (130-400) L 03/08/24 05:28
Sodium 124 mmol/L (135-145) L 03/08/24 10:18
Potassium 5.4 mmol/L (3.5-5.1) H 03/08/24 10:18
Chloride 96 mmol/L (98-107) L 03/08/24 10:18
Carbon Dioxide 21 mmol/L (22-30) L 03/08/24 10:18
BUN 29 mg/dl (9-20) H 03/08/24 10:18
Creatinine 1.4 mg/dL (0.7-1.3) H 03/08/24 10:18
Calcium 7.0 mg/dl (8.4-10.2) L 03/08/24 10:18
Total Bilirubin Cancelled 03/08/24 05:28
AST Cancelled 03/08/24 05:28
ALT Cancelled 03/08/24 05:28
Alkaline Phosphatase Cancelled 03/08/24 05:28
Lipase 923 U/L (23-300) H 03/08/24 05:28
Assessment / Plan
-
Assessment: 68-year-old male with PMH of polycythemia vera, hyperlipidemia and Lyme's disease presenting with left upper quadrant pain, abdominal fullness and bloating.
Impression:
LUQ abdominal pain
Leukocytosis
Thrombocytopenia
Hyponatremia
ALEXIS
BPH
Hyperlipidemia
Hypokalemia
Lyme's disease
Recommendations:
Presentation with LUQ abdominal pain with radiation to left shoulder.
-Suspect due to splenic infarct vs sequestration syndrome with splenomegaly given thrombocytopenia and history of polycythemia vera. Other possible etiologies include acute pancreatitis, GERD, hiatal hernia, splenic abscess, splenic
rupture/infarct.
-Noncontrast CT abdomen/pelvis 03/07 positive for hepatomegaly, splenic size 23 cm with suspected intra splenic infarct, high stool burden.
-Elevated serum lipase 923, however noncontrast CT scan not adequate for pancreatitis Dx, no other risk factors for pancreatitis.
-Advance diet.
-Supportive therapy with IV fluid, and pain control, antiemetics.
-Continue MiraLAX, Dulcolax, and Senokot-S.
-Pantoprazole.
-Follow LFTs.
-
-
Thank you for consultation and allowing me to participate in the patient's care. Please call the information manager GI physician during the after hours with any questions or concerns.
--- NOTE | 2024-03-08 11:44 | EDRN ---
No Delay Nurse Report tubed to 4th floor for M/S bed 416.2 at this time (status CLEAN NEXT) w/ call placed to floor and message left for RN who will care for pt.
[2024-03-08] MEDS: CALCIUM GLUCONATE 100 IV (13:17)
--- NOTE | 2024-03-08 14:06 | W.CON.NEPH ---
Consultation
-
Date/Time Consultation Requested: 03/08/2024 1:00 PM
Date/Time Consultation Performed: 03/08/2024 1:00 PM
Requesting Provider: Dr. Mazariegos
Performing Provider: Dr. Linder
Reason for Consultation: Acute kidney injury/hyponatremia
Medical History
-
Chief Complaint: Acute kidney injury hyponatremia
History of Present Illness:
The patient is a 68yo male with PMX of PCV with Jak2 positive polycythemia vera and underwent his last phlebotomy 02/04/2024. He had recent diagnosis of Lyme disease who presented to the ER with stinging pain to his LUQ that radiated to his left
shoulder and associated with SOB. He reports night sweats, body, aches, fevers, and arthralgias over the past 3 weeks with Tmax 103F at home. More recently he reports upper abdominal fullness and bloating over the past week. His GI symptoms are
associated with indigestion, intermittent vomiting, and decreased appetite. He reports that his Lyme panel checked by his PCP last week was positive and has started a course of doxycycline. His initial evaluation was notable for WBC 18.5, Hgb
13.9, Hct 41.8, MCV 57, platelet count 62,000, sodium 130, bun 24, creatinine 1.3, Tbili 1.3, AST 28, ALT 24, alk phos 127. CTA chest, abdomen, and pelvis showed no pulmonary emboli, however, did show splenomegaly (23cm), possible intrasplenic
infarcts, hepatomegaly (20cm), small left pleural effusion, and multilevel lumbar disc disease. He has been admitted, started on atovaquone, azithromycin, ceftriaxone, hydromorphone, and IVF. Nephrology was consulted for serum sodium dropped to 124
and creatinine rise of 1.5. UA has been bland and patient has been hemodynamically stable. He did undergo a CT angiography of her chest abdomen and pelvis on 03/07/2024 without acute findings with exception of splenomegaly and possible splenic
infarcts.
Past Medical History
PCV
HL
Social History
Tobacco: Non-Smoker
Alcohol: None
Family History
no ckd
Allergies / Home Medications
Allergy/AdvReac Type Severity Reaction Status Date / Time
Nsszcgj-OYN-LoX Reductase Allergy Unknown Verified 03/07/24 18:33
Inhibitor
�Medication �Instructions �Recorded �Confirmed �Type
aspirin 81 mg tablet,delayed 81 mg PO DAILY Blood Clot 03/07/24 03/07/24 History
release Prevention/Tx
rosuvastatin 5 mg tablet 5 mg PO DAILY High Cholesterol 03/07/24 03/07/24 History
Review of Systems
-
History Source: Patient
All other systems: Negative unless noted
Constitutional: Fever, Fatigue and Night Sweats
Abdomen/GI: Abdominal Pain
: Difficulty Voiding
Musculoskeletal: Muscle Pain
Skin: No Symptoms
Neurological: No Symptoms
Endocrine: No Symptoms
Hematologic/Lymphatic: No Symptoms
Physical Exam
Vital Signs
Vital Signs
Temp Pulse Resp BP Pulse Ox
98.8 F 70 18 139/81 93
03/08/24 12:23 03/08/24 12:23 03/08/24 12:23 03/08/24 12:23 03/08/24 12:23
Lab Results
03/08/24 05:28
03/08/24 10:18
WBC 17.1 10^3/uL (4.8-10.8) H 03/08/24 05:28
RBC 7.41 10^6/uL (4.70-6.10) H 03/08/24 05:28
Hgb 13.5 g/dL (13.0-18.0) 03/08/24 05:28
Hct 41.8 % (39.0-52.0) 03/08/24 05:28
Plt Count 62 10^3/uL (130-400) L 03/08/24 05:28
Sodium 124 mmol/L (135-145) L 03/08/24 10:18
Potassium 5.4 mmol/L (3.5-5.1) H 03/08/24 10:18
Chloride 96 mmol/L (98-107) L 03/08/24 10:18
Carbon Dioxide 21 mmol/L (22-30) L 03/08/24 10:18
BUN 29 mg/dl (9-20) H 03/08/24 10:18
Creatinine 1.4 mg/dL (0.7-1.3) H 03/08/24 10:18
eGFR 54.41 03/08/24 10:18
Glucose 106 mg/dl (70-99) H 03/08/24 10:18
Calcium 7.0 mg/dl (8.4-10.2) L 03/08/24 10:18
Physical Exam
General: AOx3, Nontoxic , NAD
HEENT: PERRL, EOMI, Anicteric, Conjunctivae Clear, Ear/Nose Intact, Hearing Normal, Oropharynx Clear/Moist, Dentition Intact, Facial Symmetry, Neck Supple, Neck: Trachea Midline, No JVD and No Thyromegaly, no Bruits
Respiratory: Clear to auscultation bilaterally with normal lung exersion
Cardiac: S1/S2 and Regular Rate/Rhythm
Breast: Deferred by me
Abdomen: Soft, LUQ tenderness, Nondistended, Normal Bowel Sounds and positive Hepatosplenomegaly
Rectal: Deferred by Provider
Genito-urinary: No Costovertebral Tenderness
Extremities: No Clubbing, No Cyanosis and No Edema
Skin: No Rash or open lesions
Neuro: Nonfocal/Grossly Intact, CN II-XII (Intact) and Strength (Musculoskeletal exam 5 out of 5 both upper and lower extremities)
Hematologic/Lymphatic: No Cervical Lymphadenopathy, No Submandibular Lymphadenopathy and No Supraclavicular Lymphadenopathy
Psych: Mood/afflect pleasant, Insight/judgement good and Appropriate
Vascular: plus 2 pedal and radial pulses
Data Reviewed
-
Radiology: Report Reviewed by me (CAT scan of abdomen pelvis and chest reviewed)
Medical Tests (Nuc Med, Echo etc): Other (EKG reviewed personally sinus rhythm at 78 bpm)
Labs: Labs Reviewed by me (BMP CBC)
Assessment/Plan
-
Impression:
ALEXIS (1.4) was 1.0 a year ago
Hyponatremia
Acute Lyme's infection
History of polycythemia vera
Hepatosplenomegaly with splenic infarcts
Dyslipidemia
Thrombocytopenia
Suspected pancreatitis with elevated lipase
Plan :
ALEXIS:
-Suspect prerenal etiology although possibly now complicated by IV contrast administration for CAT scan 2 days prior
-Checking fractional excretion of sodium
-We need accurate I's and O's and need to obtain postvoid bladder scan as patient has had issues with obstructive uropathy in the past
-CT scan of abdomen and pelvis did not reveal any acute hydronephrosis
-Patient was taking NSAIDs prior to hospitalization
-Urinalysis reviewed and relatively bland, i.e. I do not think this is an acute GN
Hyponatremia:
-Will workup, obtain urine osmolality
-Strong suspicion for SIADH
-Patient currently n.p.o. ,we will provide appropriate IV fluids as I am afraid isotonic saline is exacerbating hyponatremia
[2024-03-08 14:21] LABS: ALT (SGPT) 26 U/L (0-50); AST (SGOT) 29 U/L (17-59); Albumin 2.7 g/dl (3.5-5.0); Alkaline Phosphatase 116 U/L (38-126); Direct Bilirubin 0.2 mg/dl (0.0-0.4); LDH 927 U/L (120-246); Total Bilirubin 0.9 mg/dl (0.2-1.3); Total Protein 4.6 g/dl (6.3-8.2)
--- NOTE | 2024-03-08 14:48 | CON.ID ---
Consultation
-
Date/Time Consultation Requested: 03/07/24 22:04
Date/Time Consultation Performed: 03/08/24 15:14
Requesting Provider: Dr Lane
Performing Provider: Dr Carrillo
Reason for Consultation: lyme disease, intolerance of doxycycline
Chief Complaint / Past History
Chief Complaint
night sweats, myalgias, arthralgias
History of Present Illness
Mr Camargo is a 68 year old male with about a 3 week history of night sweats, myalgias, arthralgias, palpitations; PCP checked a lyme western blot last week which was positive and patient started doxycycline x21 days, however with 4-5 days of
abdominal bloating, GERD, decreased appetite, intermittent nausea,vomiting, decreased urine output. Noted stinging pain in the LUQ with radiation to the shoulder. He is an avid outdoorsman, does recall an embedded tick bite last December, none
since. No history of lyme disease previous to this occurrence.
Since arrival here he has been afebrile, bp stable, wbc initially 18 now 17, hgb 13.5, plt baseline 400s currently 62, L shift noted, cr baseline 1.3 today 1.4, Na 124, K 5.4, lactic acid 1.7, LDH 927, lipase 923, babesia smear x2 in progress,
babesia serology also sent by primary team, 03/07 CT a/p severe splenomegaly with length 23 cm and likely infarctions, hepatomegaly, AXR: splenomegaly, initial babesia smear preliminary negative - I asked lab to recheck carefully given high clinical
suspicion, a single set of blood cultures has been sent
Past History
Additional Past Medical History:
HLD
BPH
PCV
Past Surgical History: None
Allergy History:
Sefvlaj-KEQ-OcD Reductase Inhibitor Allergy (Verified 03/07/24 18:33)
Unknown
Medications Reviewed: Yes
Social History
Tobacco: Non-Smoker
Alcohol: None
Family History
Family History: Not Pertinent
Review of Systems
Review of Systems
General: Fever, Chills and Change in Appetite
All systems: All other systems were reviewed and were negative
Vital Signs
Temp Pulse Resp BP Pulse Ox
98.8 F 70 18 139/81 93
03/08/24 12:23 03/08/24 12:23 03/08/24 12:23 03/08/24 12:23 03/08/24 12:23
Physical Exam
Physical Exam
Constitutional: No Acute Distress and Chronically Ill
Cardiovascular: Regular Rate and S1/S2; Negative Murmur or Rub
Pulmonary: Clear and Symmetric; Negative Wheezes, Rales or Rhonchi
Gastrointestinal: Soft, Non Tender, Non Distended and Normal Bowel Sounds
Skin: Warm and Dry; Negative Rash or Jaundice
Neurological: Awake
Lab / Diagnostic Study Results
03/08/24 05:28
Total Counted 100 03/07/24 18:38
Abs Neuts (Manual) 7.0 10^3/uL (1.4-6.5) H 03/07/24 18:38
Segmented Neutrophils 37 % (42-75) L 03/07/24 18:38
Band Neutrophils 1 % (0-3) D 03/07/24 18:38
Lymphocytes (Manual) 20 % (20-51) 03/07/24 18:38
Lactic Acid 1.7 mmol/L (0.7-2.0) 03/07/24 19:51
Microbiology Results
Micro:
03/08/24 10:18 Blood Parasites Smear - Preliminary
Blood/Venous
03/08/24 10:18 Blood Parasites Smear - Pending
Blood/Venous
03/07/24 19:51 Blood Culture - Pending
Blood/Venous
Assessment / Plan
Lyme disease - late
- 03/01 lyme western blot positive in [facility]
- Anaplasma PCR to be sent out; ehrlichia concern lower
- was having nausea/vomiting with oral doxycycline, he may be able to eventually tolerate this medication if taken with food, for now can continue on ceftriaxone 2 gm iv q24hrs
- follow fever curve and symptoms; note cat X interaction between atovaquone and rifampin
Chronic Splenomegaly with notable progression
Splenic Infarctions
Hepatosplenomegaly
Thrombocytopenia
PCV on home ASA 81 mg, phlebotomy
- clinical suspicion for babesiosis is high; recent diagnosis of concomitant tick born infection in endemic region, progression of known splenomegaly (14 cm to 23 cm)/splenic infarctions, high LDH (though could also be related to splenic
infarctions), low Na with strong suspicion of SIADH - spoke with micro lab and explained my clinical suspicion is high please do the second smear
- agree that PCV can be associated with splenomegaly and infarction, note that hgb currently in the normal range
- I may consider sending out babesia PCR if both smears are negative; babesia serologies less sensitive than PCR and would require paired serologies over two weeks with a two fold rise in titer to confirm active infection; less clinically useful -
cancelled
- would continue azithromycin/atovaquone at this time irregardless of babesia smears given overall clinical picture and risk of splenic rupture
- recheck qtc in the AM
- send a second set of blood cultures to complete the set; a single set in isolation is not sensitive enough to rule out bacteremia - only about 70% sensitive and not the standard of care
follow clinically
[2024-03-08] MEDS: SODIUM CHLORIDE 249.975 MEQ IV (15:44)
[2024-03-08] MEDS: PROTONIX 40 MG PO (15:46)
[2024-03-08 16:44] LABS: INR 1.34; PT 16.9 Sec (11.4-14.6)
[2024-03-08 16:45] LABS: APTT 32.8 Sec (23.4-35.0); Fibrinogen 326 MG/DL (199-459)
[2024-03-08 17:01] LABS: Carbon Dioxide 22 mmol/L (22-30); Chloride 94 mmol/L (98-107); Sodium 124 mmol/L (135-145)
[2024-03-08] MEDS: MIRALAX 17 GRAMS PO (17:31)
[2024-03-08 17:58] LABS: Osmolality Urine 644 mOsm/kg (300-900)
[2024-03-08 18:12] LABS: Urine Sodium < 5 mmol/L (30-90)
[2024-03-08 18:43] LABS: Urine Albumin Trace (Neg - Trace); Urine Bilirubin Negative (Negative); Urine Character Slightly Cloudy (Clear); Urine Color Yellow; Urine Glucose Negative (Negative); Urine Ketone Negative (Negative); Urine Leukocyte Negative (Negative); Urine Nitrite Negative (Negative); Urine Occult Blood Negative (Negative); Urine Urobilinogen Negative (Neg - 1+)
[2024-03-08] MEDS: ROCEPHIN 2000 MG IV (20:06)
[2024-03-08] MEDS: STERILE WATER FOR INJECTION 20 ML IV (20:07)
[2024-03-08] MEDS: ATIVAN 0.5 MG PO (22:28)
[2024-03-08] MEDS: TYLENOL 650 MG PO (23:17)
[2024-03-08] MEDS: ZOFRAN 4 MG IV (23:18)
--- NOTE | 2024-03-08 23:24 | PTCARENOTE ---
Patient rang call macedo and found crouched on the floor. He then lowered his whole body onto the floor to 'cool himself off'. Patient assisted back to bed with two RNs. Bed alarm was placed under patient. Patient educated by RN to use call macedo for
assistance. BLAST FURNACE TENDER notified. Continue with current plan of care.
[2024-03-08 23:46] LABS: Glucose - Point of Care 177 mg/dl (70-99)
[2024-03-09] MEDS: MELATONIN 5 MG PO (00:10)
[2024-03-09 00:56] VITALS: BP 98/71
[2024-03-09] MEDS: XOPENEX 0.63 MG INHALANT SOLUTION INH (01:03)
[2024-03-09 01:20] LABS: Glucose - Point of Care 174 mg/dl (70-99)
--- NOTE | 2024-03-09 01:22 | W.PN.UPDATE ---
Update Note
Progress Note Update
Reported by the nursing staff that the patient is tachypnea and and anxious. Patient is 93% on 4 L of O2, bp 98/71,
On assessment, patient complaint of difficult breathing, no wheezing or crackle noted on the lung exam.
-Duo nebs, chest x-ray ordered, covid, flu, cbc, bmp, pro BNP and abg test ordered.
-While patient is receiving due nebs, he started be unresponsive verbal stimuli and not following directions. Vital signs with no changes at this time but B/L eyes not reacted to light.
Stroke alert was called
-Spoke to neurologist hand brim ironer, head CT, head and neck CTA ordered.
- Staff was not able to palpate pulse before transferring the patient to CT.
Code 9 Called
-Tried to speak/update the primary contact /Kellee regarding the declining in condition/ intubation/ transferring to ICU. Ms Goodson was not able to process with the sad news and start screaming non stop on the phone then hang up the call. Few mins
later Ms/ Kellee called and spoke to this provider and discussed the current situation and she mentioned she in the way to the hospital. Also verbal blood consent was obtained from Ms Goodson over the phone and witnessed by another co/worker BILLET RECORDER.
[2024-03-09 01:39] LABS: Hematocrit 29.6 % (39.0-52.0); Hemoglobin 8.3 g/dL (13.0-18.0); Mean Corpuscular Hgb 17.6 pg (27.0-31.0); Mean Corpuscular Volume 62.7 fL (80.0-94.0); Red Blood Cell Count 4.72 10^6/uL (4.70-6.10); Red Cell Dist. Width 20.9 % (11.5-14.5); White Blood Cell Count 80.4 10^3/uL (4.8-10.8)
[2024-03-09 01:44] LABS: APTT 105.6 Sec (23.4-35.0)
[2024-03-09 01:50] LABS: Blood Urea Nitrogen 31 mg/dl (9-20); Calcium 8.2 mg/dl (8.4-10.2); Carbon Dioxide 7 mmol/L (22-30); Chloride 98 mmol/L (98-107); Estimated Creatinine Clearance 32 ml/min; Glucose 209 mg/dl (70-99); Magnesium 3.1 mg/dl (1.6-2.3); Potassium 5.5 mmol/L (3.5-5.1); Sodium 131 mmol/L (135-145); eGFR 33.45
[2024-03-09 01:51] LABS: NT-proBNP 1400 pg/ml
--- NOTE | 2024-03-09 01:52 | W.PN.ANESINT ---
Anesthesia Intubation Note
- Intubation Note
Intubation Note:
Diagnosis: cardiorespiratory arrest
Blade: glidescope
Tube Size: 8.0 HiLo
Depth: 23cm
Side Taped: center
Drugs Used: no drugs used
Grade View: grade 1 view
EtCO2 Present: color change present as well as ETCO2 detector
Atraumatic: atraumatic
Attempts: 1 attempt
Insertion Start and Stop Time: 130 start 134 end
SaO2 Pre: unknown
SaO2 Post: unknown
Glidescope Used: glidescope used
Other Airway Adjustments: none
Pre-Oxygenated: preoxygenated by respiratory therapist
Portable Chest X-Ray: ordered
RSI: no drugs used
Suctioned: no suction used
Bilateral Breath Sounds Confirmed: bilateral breath sounds confirmed, no breath sounds over abdomen
Vent Settings:
Settings per _X__Attending Physician
Mary Onofre CRNA
[2024-03-09] MEDS: SUBLIMAZE 50 MCG IV (02:04)
[2024-03-09 02:06] LABS: Hematocrit 27.8 % (39.0-52.0); Hemoglobin 7.9 g/dL (13.0-18.0); Mean Corp Hgb Conc. 28.1 g/dL (33.0-37.0); Mean Corpuscular Hgb 17.8 pg (27.0-31.0); Mean Corpuscular Volume 63.6 fL (80.0-94.0); Platelet Count 148 10^3/uL (130-400); Red Blood Cell Count 4.37 10^6/uL (4.70-6.10); Red Cell Dist. Width 20.8 % (11.5-14.5); White Blood Cell Count 77.6 10^3/uL (4.8-10.8)
[2024-03-09 02:17] LABS: COVID-19 Antigen Negative (Negative)
--- NOTE | 2024-03-09 02:19 | PTCARENOTE ---
Patient stated he was feeling short of breath, stating 'I feel like I can`t breath'. RN took patient`s pulse ox; pulse ox was 89 on room air. RN placed patient on 2L of oxygen and rechecked pulse ox. Pulse ox remained in the 80`s on 2 liters and was
increased to 4L. Pulse ox increased to 93%. Manual blood pressure was 90/55 on left arm. Automatic blood pressure on right arm was 98/71. Patient was noted to still have increased work of breathing on the 4L of oxygen. Rectal temp was 98.6. Blood
glucose was 177. Patient was becoming increasingly more anxious and sweaty. Stefania Koo notified of patient`s status at 0040. CXR, labs and a breathing treatment were ordered. Telemetry was applied, patient noted to be in sinus tachycardia.
While patient was receiving a breathing treatment, the patient became more lethargic and eyes became fixed. Stroke alert and rapid response were called. During rapid response and stroke alert, heart dropped to the 30`s on classroom monitor. Heart
rate could not be palpated, and ICU nurse called a code 9. See code 9 documentation. Patient transferred to room 3364.
[2024-03-09 02:35] LABS: O2 Saturation % 98.7 % (94-98); PCO2 42 mmHg (35-48); PO2 152 mmHg (83-108)
[2024-03-09 02:36] LABS: O2 Therapy 4L; pH 6.83 (7.35-7.45)
[2024-03-09 03:20] LABS: ALT (SGPT) 104 U/L (0-50); AST (SGOT) 279 U/L (17-59); Albumin 2.7 g/dl (3.5-5.0); Alkaline Phosphatase 119 U/L (38-126); Direct Bilirubin 0.2 mg/dl (0.0-0.4); Total Bilirubin 0.9 mg/dl (0.2-1.3); Total Protein 4.9 g/dl (6.3-8.2)
[2024-03-09 03:42] LABS: LDH 6292 U/L (120-246)
--- NOTE | 2024-03-09 04:00 | PTCARENOTE ---
Addendum entered by Manohar Soares RN 03/09/24 06:43:
[employer] of life notified, pt did not meet criteria for donation. Post-mortem care performed. Pt belongings taken home w/ family. Pt transported to [facility] [place]
Original Note:
Pt arrived to ICU post-code, see code sheets. 2u blood hung emergently. Levophed gtt, epi gtt, bicarb gtt. Pt coded again - see code sheet. at bedside. Despite efforts, pt coded again - see code sheet. + family stated they wanted staff to
stop efforts to resuscitate. Pt .
--- NOTE | 2024-03-09 05:18 | W.PN.UPDATE ---
Addendum entered and electronically signed by TATE Jain 03/09/24 06:56:
Concern for possible splenic infarct as cause of .
Original Note:
Update Note
Progress Note Update
Per nursing: Patient AAO*3 at beginning of the shift. Later in the shift patient complaining of abdominal pain that evolved into respiratory distress. 0040 Nursing called House SCHOOL TRAFFIC SUPERVISOR for increase respiratory rate and hypotension. �Work up started.
�0113 rapid response and the stroke alert called for change in mental status. �0120 CODE 9 called for patient become bradycardic and then became unresponsive and lost pulses. �
0122 On arrival, patient had received one dose of atropine and epi. Patient intubated. On first pulse check, patient regain ROSC. �Stat labs drawn and patient transfer to ICU. �Labs showed significant drop in hgb. Family updated by House SCHOOL TRAFFIC SUPERVISOR and on
their way in.�
0200 More labs resulted revealing severe metabolic acidosis and blast crisis per lab. Vent set for maximum support. �
0207 to 0221 Patient rearrested in PEA. �Mutiple doses of Epi, 2 dose of sodium bicarb, and one dose of calcium give given. (Refer to code sheet) Regain ROSC. �One unit of blood ordered and levophed order for blood pressure support. �
Family at bedside concern that patient should be a DNR. �Advance direct papers reviewed with family and showed he was a full code under his current conditions. ��Also explained that he has high chance of rearrest and if the POA wanted to make the
patient a DNR. �She wanted to continue with full code status.� �
Abdominal US being performed for spleen rupture. �
0324 Patient rearrest (PEA), epi, sodium bicarbonate given. Regain pulse but bradycardic and thready, epi drip started. �Dr Wilcox discussed situation with family and decision was made to stop resuscitation.�Patient passed at 0339.
--- NOTE | 2024-03-09 05:35 | W.PN.DEATH ---
Pronouncement of
-
Called to see patient to pronounce.
No spontaneous heart tones or respirations noted.
Patient not responsive to verbal stimuli.
Patient is pronounced .
Time of : 03:39
Date of : 03/09/24
Cause of : Acute respiratory due to severe metabolic acidosis and Blast Crisis
Family Notified: Yes
[2024-03-09 11:16] LABS: Platelet Count 136 10^3/uL (130-400)
[2024-03-09 11:17] LABS: Absolute Neutrophils -Man Diff 13.6 10^3/uL (1.4-6.5); Atypical Lymphocytes 4 %; Band Neutrophils 9 % (0-3); Eosinophils 1 % (0-6); Lymphocytes 21 % (20-51); Metamyelocytes 2 % (-); Monocytes 48 % (2-9); Segmented Neutrophils 8 % (42-75)
[2024-03-09 11:18] LABS: Blasts 7 % (-)
[2024-03-09 11:19] LABS: Anisocytosis 2+; Hypochromasia 2+; Microcytosis 2+; Normal RBC Morphology No; Platelets Checked Yes; Poikilocytosis 2+; Polychromasia 1+; Target Cells 1+; Toxic Granulation Occassional
[2024-03-09 11:20] LABS: Ovalocytes 3+; Schistocytes 1+; Tear Drop Red Blood Cells 1+
[2024-03-09 11:21] LABS: Burr Cells 1+; Total Cells Counted 100
--- NOTE | 2024-03-09 15:13 | W.DCSUMMARY ---
Discharge Summary
Discharge Data
Date of Admission: 03/07/24
Date of Discharge: 03/09/24
-
Pending Results: No
Hospital Course
68yo M with polycythemia versa and HLD admitted with weakness, nighttime sweats and fever started 6 days before admission. His coverstitch machine operator found a tick on his body in December, but patient did not follow up with his PCP to the test until the last
week. outpatient Lyme screen came back positive, patient staretd on Doxy., but developed LUQ abd pain and vomiting, unable to hold food down. Admitted with acute Lyme disease. Also found hyponatremia and mild hyperkalemia with ALEXIS on admission,
possibly contributed to episodes of vomitting and dehydration at home. CT chest/abdomen/pelvis showed hepatosplenomegally with concern for splenic infarcts. Since patient with additional thrombocytopenia on admisison - concern for possible
Babesiosis, in spite of negative parasite screen, so ID started patient on Azithromacin/Atovaquone. Hematolgy evaluated patient, check fibrinogen, that was normal and sent smear for review with pathologist. GI called for possible pancreatitis since
lipase was elevated and patient c/o LUQ abd pain, hpowever it was deemed inconsistent with pancreatitisIn the evening of the second day patient became unresponsive to verbal stimuli and stopped following commands during Duoneb treatment. Neurologist
was called and stat head CT with CTA were ordered, however patient had cardiac arrest before studies were able to be complete. Patient was intubated, labs sent showing significant leukocytosis with possible blast crisis. Abdominal US done showing no
splenic rupture. Patient had second cardiac arrest and family decised to stop resuscitation. at 3:39am on 03/09/24
I have spent at least 59min reviewing chart, test results, communication with consultants and direct patient care
Patient was managed for:
#Acute lyme disease
#Blast crisis
#Polycythemia vera
#Thrombocytopenia
#microcytosis
#Elevated bilirubin
#hepatosplenomegally with splenic infarction
#alexis
#Hyponatremia
#Mild hyperkalemia
#Pancreatitis ruled out
#Cardiac arrest
#Acute hypoxic respiraotry insufficiency
Discharge Plan
-
Patient Disposition:
Date/Time
Date/Time: 03/09/24 03:39
Discharge Date and Time
Discharge Date/Time: 03/09/24 03:39
Print Language: LUX[place]
[2024-03-10 09:38] LABS: Aldosterone, Serum 40.9 ng/dL; Aldosterone/Renin Activ Ratio 4.7 ratio (<=25.0); Renin Activity Results 8.7 ng/mL/hr
[2024-03-13 03:45] LABS: Babesia microti IgG < 1:16 (< 1:16); Babesia microti IgM <1:20 (<1:20)
== END 2024-03-09 03:39 | disposition expired | DRG 841 ==
LOC: ICU 22:32
PROVIDERS: Emergency Medicine; Nurse Practitioner Family; Physician Assistant; ADMITTING PHYSICIAN Internal Medicine; ATTENDING PHYSICIAN Internal Medicine; CONSULT PHYSICIAN Internal Medicine Gastroenterology; CONSULT PHYSICIAN Specialist; EMERGENCY PHYSICIAN Emergency Medicine; FAMILY PHYSICIAN Internal Medicine; OTHER PHYSICIAN Internal Medicine Hematology & Oncology; OTHER PHYSICIAN Student in an Organized Health Care Education/Training Program
PROC: 30233N1 Transfusion of Nonautologous Red Blood Cells into Peripheral Vein, Percutaneous Approach (ICD-10-PCS; 2024-03-09)
PROC: 0BH18EZ Insertion of Endotracheal Airway into Trachea, Via Natural or Artificial Opening Endoscopic (ICD-10-PCS; 2024-03-09)
DX: D45 Polycythemia vera (principal); A69.20 Lyme disease, unspecified; E22.2 Syndrome of inappropriate secretion of antidiuretic hormone; N17.9 Acute kidney failure, unspecified; E87.20 Acidosis, unspecified; B60.00 Babesiosis, unspecified; D73.5 Infarction of spleen; E86.0 Dehydration; E78.00 Pure hypercholesterolemia, unspecified; E87.5 Hyperkalemia; K21.9 Gastro-esophageal reflux disease without esophagitis; K59.00 Constipation, unspecified; R16.2 Hepatomegaly with splenomegaly, not elsewhere classified; D69.59 Other secondary thrombocytopenia; I46.9 Cardiac arrest, cause unspecified; R09.02 Hypoxemia; R06.89 Other abnormalities of breathing; N40.0 Benign prostatic hyperplasia without lower urinary tract symptoms; D72.828 Other elevated white blood cell count; Z79.82 Long term (current) use of aspirin; Z79.899 Other long term (current) drug therapy; Z11.52 Encounter for screening for COVID-19
CPT/HCPCS: 36600; 71045; 71275; 74177; 76705; 80048; 80051; 80053; 80076; 81003; 82088; 82248; 82533; 82570; 82805; 82962; 83605; 83615; 83690; 83735; 83880; 83935; 84244; 84300; 84484; 85025; 85027; 85384; 85610; 85730; 86753; 86850; 86900; 86901; 86920; 87015; 87040; 87207; 87811; 93005; 94640; 96361; 96374; 99285; P9016; Q9967